=== PATIENT | female | born 1960 ===

== ENCOUNTER 2025-06-14 08:15 | Observation (INO) | payer MEDICARE, SELFPAY ==
[2025-06-14] VITALS (15 sets, daily range): BP systolic 100–153; BP diastolic 50–73; PULSE 62–76; RESP 12–22; TEMP 35.6–36.3; O2SAT 94–100; BMI 20.5
--- NOTE | 2025-06-14 | DI.CT.S_ITS ---
PROCEDURE: CT CHEST ABD PEL W CON INDICATIONS: FALL TECHNIQUE: After the administration of intravenous contrast, 5 mm thick sections acquired from the lung apices to the symphysis. 2.5 mm thick coronal and sagittal reformats were acquired. Additional 7 mm thick coronal maximum intensity projection (MIP) reformats acquired through the lungs. Optional 10-minute delayed imaging may be performed from the kidneys to the bladder. For radiation dose reduction, the following was used: automated exposure control, adjustment of mA and/or kV according to patient size. COMPARISON: None. FINDINGS: Image quality: Diagnostic. CHEST: Lower Neck: No enlarged lymph nodes. Thyroid: No thyroid nodules which require sonographic evaluation. Axillae: No enlarged lymph nodes. Chest Wall: No subcutaneous gas. Lungs and Pleura: No pulmonary contusions or lacerations. No acute airspace opacities. No pneumothorax or hemothorax. Mediastinum: No mediastinal hematomas. Heart size is normal. There is a low- density pericardial effusion measuring 1.3 cm in depth anteriorly. Thoracic aorta and pulmonary arteries demonstrate normal size and enhancement. No mediastinal or hilar adenopathy. Esophagus is normal in caliber. No hiatal hernia. ABDOMEN: Liver: No lacerations. Gallbladder: No radiopaque gallstones or wall thickening. Biliary ducts: No biliary dilation. Pancreas: Homogenous enhancement. Spleen: Homogenous enhancement without laceration or hematoma. Adrenal Glands: Symmetric enhancement. Kidneys and Ureters: Symmetric enhancement. No hydronephrosis. No solid mass. No complex renal cystic lesion which requires follow up. Stomach and Bowel: Normal colonic caliber, without significant wall thickening. Peritoneum: No abnormal intraperitoneal fluid. No free air. Ventral Wall: No hernia. Abdominal Nodes: No retroperitoneal or mesenteric adenopathy by size criteria. Vessels: Aorta and inferior vena cava are normal in size. PELVIS: Pelvic Organs: Unremarkable. Bladder: Normal thickness. Pelvic Nodes: No enlarged lymph nodes. Miscellaneous: No inguinal hernias are seen. Bones: Pelvic ring and hip joints appear intact. No displaced rib fractures. IMPRESSION: No evidence of traumatic injury to the chest, abdomen or pelvis. Simple pericardial effusion. Dictated by: Lia Armenta M.D. on 06/14/2025 at 9:10 Approved by: Lia Armenta M.D. on 06/14/2025 at 9:15
--- NOTE | 2025-06-14 08:16 | ED.GENADULT ---
HPI - General Adult General Chief complaint: Fall Stated complaint: Falls History of Present Illness HPI narrative: 64-year-old female brought in via EMS for being found on the floor by a neighbor after attempting to take 3 lorazepam pills to go to sleep with complaints of SI joint pain. Patient very drowsy at this time response to 1 word answers needs to be redirected multiple times for me. Patient denies headache, dizziness, chest pain, neck pain, back pain, abdominal pain, hematuria, bowel or bladder incontinence, shortness of breath, dyspnea on exertion, numbness, tingling down, the legs or arms. Other than what is stated 14 point review of system is negative. Related Data Home Medications ?Medication ?Instructions ?Recorded ?Confirmed baclofen 10 mg tablet 10 mg PO 3XD 06/14/25 06/14/25 clonazepam 0.5 mg tablet 0.5 mg PO Q8H PRN anxiety 06/14/25 06/14/25 dextroamphetamine-amphetamine 20 20 mg PO .qhs 06/14/25 06/14/25 mg tablet dextroamphetamine-amphetamine ER 1 cap PO QAM 06/14/25 06/14/25 30 mg 24hr capsule,extend release trazodone 100 mg tablet 100 mg PO ONCE PM PRN sleep 06/14/25 06/14/25 Previous Rx's ?Medication ?Instructions ?Recorded citalopram 20 mg tablet (Celexa) 20 mg PO DAILY #30 tabs 06/14/25 Allergies Allergy/AdvReac Type Severity Reaction Status Date / Time No Known Drug Allergies Allergy Verified 06/14/25 08:22 Review of Systems Review of Systems ROS Unobtainable: All systems reviewed & are unremarkable except as noted in HPI and below Patient History Medical History (Updated 06/14/25 @ 19:02 by Jorge Husain MD) Sacroiliac joint pain Anxiety Hypothyroidism Depression Chronic pain Surgical History (Updated 06/14/25 @ 19:03 by Jorge Husain MD) H/O total knee replacement Family History (Updated 06/14/25 @ 19:03 by Jorge Husain MD) Mother Secondary biliary cirrhosis Father Alcoholism Social History household members: none Smoking Status: Unknown if ever smoked alcohol intake: never Exam Narrative Exam Narrative: GENERAL: [64] year old patient appears stated age. Well-developed patient, in mild distress. HEAD: Atraumatic. Normocephalic. EYES: Pupils equal round and reactive. Extraocular motions intact. No scleral icterus. No injection or drainage. ENT: Nose without bleeding, purulent drainage. Throat without erythema, tonsillar hypertrophy or exudate. Airway patent. NECK: Trachea midline. Non tender CARDIOVASCULAR: Regular rate and rhythm without murmurs, gallops, or rubs. RESPIRATORY: Clear to auscultation. Breath sounds equal bilaterally. No wheezes, rales, or rhonchi. GASTROINTESTINAL: Abdomen soft, non-tender, nondistended. EXTREMITIES: No edema or joint tenderness. BACK: Nontender without deformity or crepitance. No flank tenderness. NEURO: AOx3. SKIN: No rash or erythema of visible areas Initial Vital Signs Initial Vital Signs: Vital Signs Pulse Rate 68 06/14/25 08:18 Respiratory Rate 18 06/14/25 08:18 Blood Pressure 105/55 L 06/14/25 08:18 Pulse Oximetry 100 06/14/25 08:18 Course Orders Ordered: ED Orders 06/14/25 12:19 Consult to Physical Therapy Evaluate & Treat 06/14/25 15:11 Consult to [employer] - Hospital Librarian Stat Cyclobenzaprine HCl (Cyclobenzaprine 10 Mg Tablet) 5 mg PO Q8HR PRN PRN Reason: Spasms Sodium Chloride (Normal Saline 0.9%) 1,000 mls @ 100 mls/hr IV CONT [facility] Ketorolac Tromethamine (Ketorolac 30 Mg/Ml Vial) 15 mg IV Q8H PRN PRN Reason: Pain, Severe (7-10) Stop: 06/19/25 20:05 Levothyroxine Sodium (Levothyroxine 137 Mcg Tablet) 137 mcg PO DAILY@0600 [facility] Naloxone HCl (Naloxone 0.4 Mg/Ml Vial) 0.2 mg IV Q2MIN PRN PRN Reason: Opiate Reversal Venlafaxine HCl (Venlafaxine Er 75 Mg Cap) 150 mg PO DAILY [facility] Discontinued Medications Aspirin (Aspirin 81 Mg Chew Tab) 324 mg PO NOW ONE Stop: 06/14/25 08:31 Last Admin: 06/14/25 08:39 Dose: Not Given Documented By: MLM Sodium Chloride (Normal Saline 0.9%) 1,000 mls @ 150 mls/hr IV CONT [facility] Last Admin: 06/14/25 08:40 Dose: Not Given Documented By: RASHIDA Lactated Ringer's (Lactated Ringers) 1,000 mls @ 1,000 mls/hr IV BOLUS ONE Stop: 06/14/25 09:32 Last Infusion: 06/14/25 09:39 Dose: Infused Documented By: Admin: 06/14/25 08:42 Dose: 1,000 mls/hr Documented By: RASHIDA Ketorolac Tromethamine (Ketorolac 30 Mg/Ml Vial) 15 mg IV NOW ONE Stop: 06/14/25 10:01 Last Admin: 06/14/25 10:04 Dose: 15 mg Documented By: RASHIDA Lidocaine (Lidocaine 5% Patch) 1 each TOP NOW ONE Stop: 06/14/25 20:19 Vital Signs Vital signs: Vital Signs - 8 hr 06/14/25 13:00 Pulse Rate 72 Respiratory Rate 16 Medical Decision Making Lab Data 06/14/25 08:26 06/14/25 08:26 Labs: Lab Results 06/14/25 06/14/25 Range/Units 08:26 11:02 WBC 3.8 L (4.5-11.0) X10^3/uL RBC 4.12 (4.0-5.2) X10^6/uL Hgb 12.3 (12.0-16.0) g/dL Hct 36.6 (36-46) % MCV 88.7 (80-100) fL MCH 29.8 (26-34) PG MCHC 33.6 (30-36) % RDW 15.6 H (11.6-14.8) % Plt Count 216 (150-400) X10^3/uL Neut % (Auto) 70.8 (50-75) % Lymph % (Auto) 18.0 L (25-40) % [place] % (Auto) 10.3 (3-14) % Eos % (Auto) 0.4 L (2-4) % Baso % (Auto) 0.5 (0-2) % Neut # (Auto) 2700 (6721-7883) /uL Lymph # (Auto) 700 L (6510-3290) /uL [place] # (Auto) 400 (0-900) /uL Eos # (Auto) 0 (0-450) /uL Baso # (Auto) 0 (0-100) /uL Sodium 136 L (137-145) mmol/L Potassium 4.4 (3.4-5.1) mmol/L Chloride 107 (98-107) mmol/L Carbon Dioxide 24 (22-32) mmol/L BUN 24 H (7-17) mg/dL Creatinine 0.58 (0.52-1.04) mg/dL Estimated GFR > 60 (>60) mL/min BUN/Creatinine Ratio 41.4 H (6-22) Glucose 102 H (70-99) mg/dL Calcium 8.9 (8.4-10.2) mg/dL Total Bilirubin 0.3 (0.2-1.3) mg/dL AST 38 H (14-36) IU/L ALT 26 (<35) IU/L Alkaline Phosphatase 82 (38-126) U/L Ammonia < 9 L (9-30) umol/L Total Creatine Kinase 73 (30-135) U/L Troponin I < 0.012 (0.01-0.034) ng/mL Total Protein 7.1 (6.3-8.2) g/dL Albumin 4.2 (3.5-5.0) g/dL Globulin 2.9 (1.7-4.1) g/dL Albumin/Globulin Ratio 1.4 (1.0-2.8) Lipase 113 (23-300) U/L Urine RBC 0-1/hpf (0-5/HPF) Urine WBC None seen (0-5/HPF) Ur Squamous Epith Cells None seen (0-5/HPF) Urine Bacteria None seen (None) Ur Culture Indicated? Cult not indicated Vol Urine Centrifuged 10ml (spun) Salicylates < 1.0 (<20) mg/dL U Opiates 300ng/mL cut Negative (Negative) Ur Oxycodone Screen Positive H (Negative) Urine Methadone Screen Negative (Negative) Acetaminophen < 10 (10-30) ug/mL Ur Barbiturates Screen Negative (Negative) U Tricyclic Antidepress Negative (Negative) Ur Phencyclidine Scrn Negative (Negative) Ur Amphetamines Screen Negative (Negative) U Methamphetamines Scrn Negative (Negative) Ur MDMA Scrn (Ecstasy) Negative (Negative) U Benzodiazepines Scrn Negative (Negative) Urine Cocaine Screen Negative (Negative) U Marijuana (THC) Screen Negative (Negative) Urine pH Normal (Normal) Urine Specific [place] Normal (Normal) Ethyl Alcohol < 10 (<10) mg/dL Ur Creatinine Normal (Normal) Imaging Data CT scan - head: Radiologist's Impression: [place] [address] CT Scan Report Signed Patient: Sheron Vilchis MR#: [id number] : 1960 Acct:[id number] Age/Sex: 64 / F Date of Service: 06/14/25 Loc: ED Accession Number: [id number] Procedure: CT head/brain wo con Ordering Provider: Irvin Romero D.O. PROCEDURE: CT HEAD/BRAIN WO CON INDICATIONS: trauma TECHNIQUE: Noncontrast 4.5 mm thick angled axial sections acquired from the foramen magnum to the vertex, with coronal and sagittal reformats. For radiation dose reduction, the following was used: automated exposure control, adjustment of mA and/or kV according to patient size. COMPARISON: None. FINDINGS: Image quality: Diagnostic. CSF spaces: Basal cisterns are patent. No extra-axial fluid collections. The ventricles are symmetric in size and shape. Brain: No intracranial bleeds or mass effect. There is cerebral volume loss, with resultant ventricular and sulcal prominence. There are periventricular and deep white matter chronic small vessel ischemic changes. There is intracranial internal carotid artery atherosclerosis. Skull and face: Calvarium and visualized facial bones appear intact, without suspicious lesions. Sinuses: Visualized sinuses and mastoids are clear. IMPRESSION: No acute intracranial pathology. CT - cervical spine: Radiologist's Impression: [place] [id number] CT Scan Report Signed Patient: Sheron Vilchis MR#: [id number] : 1960 Acct:[id number] Age/Sex: 64 / F Date of Service: 06/14/25 Loc: ED Accession Number: [id number] Procedure: CT cervical spine wo con Ordering Provider: Irvin Romero D.O. PROCEDURE: CT CERVICAL SPINE WO CON INDICATIONS: trauma TECHNIQUE: Noncontrast 3 mm thick sections acquired from the skull base to the T4 level. Sagittal and coronal reformats were then constructed. For radiation dose reduction, the following was used: automated exposure control, adjustment of mA and/or kV according to patient size. COMPARISON: None. FINDINGS: Image quality: Excellent. Bones: No fractures or dislocations. Osteopenia. Diffuse cervical spondylitic change. Findings include multilevel bilateral bony foraminal narrowing and a degree of canal stenosis C5-C6 and C6-C7. Visualized superior ribs are intact. Soft tissues: Prevertebral soft tissues are normal in thickness. No paravertebral hematomas. No apical pneumothoraces. IMPRESSION: No displaced fracture or traumatic subluxation. Cervical spondylosis. Osteopenia. CT scan - abdomen/pelvis: Radiologist's Impression: [address] [address] [address] Scan Report Signed Patient: Sheron Vilchis MR#: [id number] : 1960 Acct:[id number] Age/Sex: 64 / F Date of Service: 06/14/25 Loc: ED Accession Number: [id number] Procedure: CT chest abd pel w con Ordering Provider: Irvin Romero D.O. PROCEDURE: CT CHEST ABD PEL W CON INDICATIONS: FALL TECHNIQUE: After the administration of intravenous contrast, 5 mm thick sections acquired from the lung apices to the symphysis. 2.5 mm thick coronal and sagittal reformats were acquired. Additional 7 mm thick coronal maximum intensity projection (MIP) reformats acquired through the lungs. Optional 10-minute delayed imaging may be performed from the kidneys to the bladder. For radiation dose reduction, the following was used: automated exposure control, adjustment of mA and/or kV according to patient size. COMPARISON: None. FINDINGS: Image quality: Diagnostic. CHEST: Lower Neck: No enlarged lymph nodes. Thyroid: No thyroid nodules which require sonographic evaluation. Axillae: No enlarged lymph nodes. Chest Wall: No subcutaneous gas. Lungs and Pleura: No pulmonary contusions or lacerations. No acute airspace opacities. No pneumothorax or hemothorax. Mediastinum: No mediastinal hematomas. Heart size is normal. There is a low-density pericardial effusion measuring 1.3 cm in depth anteriorly. Thoracic aorta and pulmonary arteries demonstrate normal size and enhancement. No mediastinal or hilar adenopathy. Esophagus is normal in caliber. No hiatal hernia. ABDOMEN: Liver: No lacerations. Gallbladder: No radiopaque gallstones or wall thickening. Biliary ducts: No biliary dilation. Pancreas: Homogenous enhancement. Spleen: Homogenous enhancement without laceration or hematoma. Adrenal Glands: Symmetric enhancement. Kidneys and Ureters: Symmetric enhancement. No hydronephrosis. No solid mass. No complex renal cystic lesion which requires follow up. Stomach and Bowel: Normal colonic caliber, without significant wall thickening. Peritoneum: No abnormal intraperitoneal fluid. No free air. Ventral Wall: No hernia. Abdominal Nodes: No retroperitoneal or mesenteric adenopathy by size criteria. Vessels: Aorta and inferior vena cava are normal in size. PELVIS: Pelvic Organs: Unremarkable. Bladder: Normal thickness. Pelvic Nodes: No enlarged lymph nodes. Miscellaneous: No inguinal hernias are seen. Bones: Pelvic ring and hip joints appear intact. No displaced rib fractures. IMPRESSION: No evidence of traumatic injury to the chest, abdomen or pelvis. Simple pericardial effusion. ECG Data Interpretation: NSR HR 63 ME 154 QRS [address]-t wave change NO previous EKG to compare MDM Narrative Medical decision making narrative: All lab work, vital signs, nurse triage note, medication list, previous ER visits, and all imaging studies reviewed. CT chest abdomen and pelvis showed no acute process other than simple pericardial effusion measuring 1.3 cm in depth anteriorly. CT cervical spine showed cervical spondylosis no displaced fracture or traumatic subluxation. CT head showed no acute intracranial process. White count 3.8 sodium 136 BUN 24 creatinine 0.58 glucose 102 AST 38 ammonia less than 9 troponin all salicylate acetaminophen and alcohol level all normal. UDS positive for oxycodone. Friends came in here and mentioned that she just lost her 3 months ago suddenly his in the grieving process. Differential diagnosis hemorrhage, fracture, dislocation, contusion, pneumothorax, depression, anxiety, grieving. PT has assess the patient and unsteady at this time and unsafe to go home. Multiple attempts by RN to evaluate patient gait unsteady and unsafe to go home at this time. Case discussed with Dr. miller who has graciously accepted the patient for inpatient admission in light of unsteady gait. Discharge Plan Departure Patient Disposition: Admitted as Observation Clinical Impression: Anticipatory grieving, Unsteady gait Fall Qualifiers: Encounter type: initial encounter Qualified Code(s): W19.XXXA - Unspecified fall, initial encounter Contusion Qualifiers: Encounter type: initial encounter Contusion area: lower back Qualified Code(s): S30.0XXA - Contusion of lower back and pelvis, initial encounter Admit Date/Time: 06/14/25 18:39 Admit Provider: Jorge Husain
--- NOTE | 2025-06-14 08:24 | EKG_ITS ---
[address] [address] Test Date: 2025-06-14 Pat Name: Sheron Vilchis Department: Room: Gender: Female [employer] Clerk: EMANUEL : 1960 Requested By: Order Number: [id number] Reading MD: Geoff Husain Measurements Intervals [place] Rate: 63 P: 70 AR: 154 QRS: 59 QRSD: 86 T: 73 QT: 416 QTc: 425 Interpretive Statements Normal sinus rhythm Electronically Signed On 06-14-2025 18:41:30 PDT by Geoff Husain
--- NOTE | 2025-06-14 08:31 | DI.CT.S_ITS ---
PROCEDURE: CT HEAD/BRAIN WO CON INDICATIONS: trauma TECHNIQUE: Noncontrast 4.5 mm thick angled axial sections acquired from the foramen magnum to the vertex, with coronal and sagittal reformats. For radiation dose reduction, the following was used: automated exposure control, adjustment of mA and/or kV according to patient size. COMPARISON: None. FINDINGS: Image quality: Diagnostic. CSF spaces: Basal cisterns are patent. No extra-axial fluid collections. The ventricles are symmetric in size and shape. Brain: No intracranial bleeds or mass effect. There is cerebral volume loss, with resultant ventricular and sulcal prominence. There are periventricular and deep white matter chronic small vessel ischemic changes. There is intracranial internal carotid artery atherosclerosis. Skull and face: Calvarium and visualized facial bones appear intact, without suspicious lesions. Sinuses: Visualized sinuses and mastoids are clear. IMPRESSION: No acute intracranial pathology. Dictated by: Juan Carlos Melendez M.D. on 06/14/2025 at 9:41 Approved by: Juan Carlos Melendez M.D. on 06/14/2025 at 9:42
--- NOTE | 2025-06-14 08:31 | DI.CT.S_ITS ---
PROCEDURE: CT CERVICAL SPINE WO CON INDICATIONS: trauma TECHNIQUE: Noncontrast 3 mm thick sections acquired from the skull base to the T4 level. Sagittal and coronal reformats were then constructed. For radiation dose reduction, the following was used: automated exposure control, adjustment of mA and/or kV according to patient size. COMPARISON: None. FINDINGS: Image quality: Excellent. Bones: No fractures or dislocations. Osteopenia. Diffuse cervical spondylitic change. Findings include multilevel bilateral bony foraminal narrowing and a degree of canal stenosis C5-C6 and C6-C7. Visualized superior ribs are intact. Soft tissues: Prevertebral soft tissues are normal in thickness. No paravertebral hematomas. No apical pneumothoraces. IMPRESSION: No displaced fracture or traumatic subluxation. Cervical spondylosis. Osteopenia. Dictated by: Juan Carlos Melendez M.D. on 06/14/2025 at 9:42 Approved by: Juan Carlos Melendez M.D. on 06/14/2025 at 9:43
[2025-06-14 08:38] LABS: Add Manual Diff / Slide Review NO; Hematocrit 36.6 % (36-46); Hemoglobin 12.3 g/dL (12.0-16.0); Lymphocytes Absolute Auto 700 /uL (1100-4500); Mean Corpuscular HGB Conc 33.6 % (30-36); Mean Corpuscular Hemoglobin 29.8 PG (26-34); Mean Corpuscular Volume 88.7 fL (80-100); Platelet Count 216 X10^3/uL (150-400)
[2025-06-14] MEDS: LACTATED RINGERS 1,000 ML 1000 ML IV (08:42)
[2025-06-14 08:44] LABS: Alanine Aminotransferase 26 IU/L (<35); Albumin 4.2 g/dL (3.5-5.0); Albumin Globulin Ratio 1.4 (1.0-2.8); Alkaline Phosphatase 82 U/L (38-126); Blood Urea Nitrogen 24 mg/dL (7-17); Calcium 8.9 mg/dL (8.4-10.2); Carbon Dioxide 24 mmol/L (22-32); Chloride 107 mmol/L (98-107); Creatine Kinase 73 U/L (30-135); Estimated Glomerular Filt Rate > 60 mL/min (>60); Globulin 2.9 g/dL (1.7-4.1); Glucose 102 mg/dL (70-99); HEMOLYSIS 24 (0-50); Lipase 113 U/L (23-300); Potassium 4.4 mmol/L (3.4-5.1); Sodium 136 mmol/L (137-145); Total Protein 7.1 g/dL (6.3-8.2)
[2025-06-14 08:50] LABS: Acetaminophen < 10 ug/mL (10-30); Ethanol (ETOH) < 10 mg/dL (<10); Salicylate < 1.0 mg/dL (<20)
[2025-06-14 08:55] LABS: Troponin I < 0.012 ng/mL (0.01-0.034)
[2025-06-14 09:25] LABS: Ammonia (NH3) < 9 umol/L (9-30)
[2025-06-14] MEDS: KETOROLAC 30 MG/ML VIAL 15 MG IV ×2 (10:04→20:42)
[2025-06-14 11:41] LABS: UR Morphine/Opiate cutoff 300 Negative (Negative); Ur Specific Gravity Normal (Normal); Urine MDMA Negative (Negative); Urine Methamphetamines Negative (Negative); Urine Tetrahydrocannabinol Negative (Negative); Urine Tricyclic Antidepressant Negative (Negative)
[2025-06-14 11:43] LABS: Culture Indicated Urine Cult Not Indicated
--- NOTE | 2025-06-14 12:44 | PC.NURSE ---
1115-pt assisted up to toilet in bedside commode. Pt was 2 person assist, at one point pt required max assist back to bed because pt was leaning forward with out moving feet. Pt lifted back to bed. pt is very slurred with speech.
--- NOTE | 2025-06-14 14:35 | PT.IIE ---
Physical Therapy Inpatient Evaluation/Re-Eval M1 PT/OT-IP Prior Functional Status Start: 06/14/25 17:41 Freq: Status: Active Protocol: Document 06/14/25 14:35 AB (Rec: 06/14/25 17:53 AB Desktop) Medical Review Prior Functional Status Medical History Yes Reviewed Communication pt is drowsy; able to make needs known Mobility and Gait pt stated that she was modified independent with all mobilities and ambulation using a SPC for indoor and FWW for outdoor ambulation; pt stated that she has chronic SI joint pain affecting ambulation Social History Household Members none Living Arrangements House Number of Floors ( One Floor Floors) Number of Stairs To 2 steps B rails to enter Enter/Railing? Home Environment Standard Height Toilet,Walk in Shower Home Equipment Grab Bars Near Toilet,Grab Bars In Shower M2 PT-IP Current Condition Start: 06/14/25 17:41 Freq: Status: Active Protocol: Document 06/14/25 14:35 AB (Rec: 06/14/25 17:53 AB Desktop) Physical Therapy Current Condition Current Condition Evaluation Date 06/14/25 Treatment Diagnosis fall; difficulty in walking Onset Date 06/14/25 M3 PT-IP Subjective Start: 06/14/25 17:41 Freq: Status: Active Protocol: Document 06/14/25 14:35 AB (Rec: 06/14/25 17:53 AB Desktop) Subjective Physical Therapy Visit Type Type Initial Evaluation Visit Start Time 14:35 Visit Stop Time 15:05 Number of SQUAD BOSS Visits 0 Therapy Pain Assessment Pain When Pain Assessed At Rest Pain Present Pain Present Pain Reported Location SI joint Intensity 8 Scale Used Numeric (0 - 10) Pain Behaviors Facial Grimacing,Guarding,Holding Area Pain Management Apply Cold,Distraction,Modification of Treatment,Re- Techniques positioning,Timing of Activity with Medications M4 PT-IP Mobility and Gait Start: 06/14/25 17:41 Freq: Status: Active Protocol: Document 06/14/25 14:35 AB (Rec: 06/14/25 17:53 AB Desktop) PT-Bed Mobility Assessment Supine to Sit Supine to Sit Standby Assistance Sit to Supine Sit to Supine Standby Assistance PT-Transfer Assessment Sit to and From Stand Sit to and from Minimal Assistance,1 Person Assistance,Use of Upper Stand Extremities Equipment Transfer Assistive Gait Belt,Front Wheeled Walker Device Orthotic/Prosthetic No Devices or Brace: Comments Mobility Comments pt seen in the ED. pt in bed and seems drowsy. agreed to do PT. obtained PLOF and home set up. supine to sit SBA and cues for safety. sit to stand min A and ambulated in room using fWW min A and max cues. pt tends to push FWW too far forward and needed assist to maneuver FWW. pt has decrease safety awareness and has difficulty following directions. pt sat back on EOB and completed sit to supine SBA. positioned pt in bed. call light and table placed within reach. informed nurse. pt has decrease level of alertness affecting mobility and safety awareness. Gait Assessment Gait Gait Assistance Minimum Assistance Required: Distance (Feet) 15 Able to Maintain Yes Weight Bearing Status During Gait Assistive Devices Assistive Device Gait Belt,Front Wheeled Walker Orthotic/Prosthetic No Devices or Brace: Gait Deviations General Gait Pattern Ataxic,Decreased Stride Length,Decreased Feet Clearance Factors Limiting Gait Function Factors Limiting Decreased Activity Tolerance,Decreased Strength, Gait Function Difficulty Following Directions,Limited Range of Motion ,Pain,Poor Balance,Poor Safety Awareness PT-Balance Assessment Sitting Balance and Reactions Static Sitting Good Balance Ability Dynamic Sitting Good Balance Ability Standing Balance and Reactions Static Standing Fair Balance Ability Dynamic Standing Poor Balance Ability Device Used FWW M5 PT-IP Objective Assessments Start: 06/14/25 17:41 Freq: Status: Active Protocol: Document 06/14/25 14:35 AB (Rec: 06/14/25 17:53 AB Desktop) Orientation Orientation/Cognition Level of Alertness Lethargic Orientation Name,Place,Situation Safety Awareness Decreased Safety Awareness Memory Description Short Term Impaired Gross Range of Motion Lower Extremity ROM Assessment Within Functional Limits Strength Lower Extremity Strength Assessment Within Functional Limits Muscle Tone Muscle Tone WNL Yes M6 PT-IP Treatment Start: 06/14/25 17:41 Freq: Status: Active Protocol: Document 06/14/25 14:35 AB (Rec: 06/14/25 17:53 AB Desktop) Physical Therapy Treatment Education Education Provided Safety M7 PT-IP Assessment and Plan Start: 06/14/25 17:41 Freq: Status: Active Protocol: Document 06/14/25 14:35 AB (Rec: 06/14/25 17:53 AB Desktop) PT Summary Assessment and Plan Potential Rehabilitation Fair Potential Status of Condition Evolving at Evaluation Summary Impairments Pain,ROM,Strength,Balance,Coordination,Sensation,Tone, Cognition,Bed Mobility,Transfers,Gait,Activity Tolerance Assessment Summary pt is a 64 y/o F who presented to the ED after a fall. pt seen in the ED . pt requiring min A and max cues with ambulation using FWW. pt has decrease level of alertness affecting mobility level and safety awareness . pt will need assistance at home. informed nurse that pt's level of alertness affecting mobility and is not safe to go home at this time but nursing staff may want to do another trial of ambulation when pt is more alert. Goals Bed Mobility Goal Independent Transfer Goal Independent,Front Wheeled Walker Gait Goal Independent,Front Wheel Walker Gait Distance 50 Other Goals improve transfers, ambulation using SPC 100 ft mod I up/down 2 steps B rails SBA Days to Meet Goals 5 Frequency of Treatment Frequency Of Once a Day Treatment Treatment Plan Physical Therapy Bed Mobility Training,Transfer Training,Gait Training, Treatment Plan Therapeutic Exercise,Balance Retraining,Discharge Planning,Hot or Cold Pack,Neuromuscular Re-ed, Coordination Retraining Precautions Other Precautions falls Recommendations To Nursing Amount of Assist 1 Person Assist Needed Discharge Recommendations PT Discharge Home with 24/04 Assist Available,Home Health Recommendations Transportation Needs Private Vehicle,Wheelchair/Cabulance at Discharge - PT assist 1
--- NOTE | 2025-06-14 18:30 | PC.NURSE ---
Attempted an ambulation trial. Pt unable to ambulate independently. pt very unsteady on feet.
--- NOTE | 2025-06-14 18:35 | P.HP_ITS ---
History of Present Illness History of Present Illness Date Patient Seen: 06/14/25 Time Patient Seen: 18:35 Chief complaint: Falls Narrative: This is a 64-year-old female with a history of anxiety, depression, benzodiazepine use, hypothyroidism and chronic left SI joint pain who presents from home with repeated falls, weakness and gait ataxia. She has been in the ED for about 10 hours going through a workup and then hoping that her altered mental status would clear so she could go home. That does not seem to be happening. She remembers taking 3 of the 0.5 mg clonazepam tablets this morning and then falling when she was letting the dogs out of her house. She says she got up walked to the kitchen and fell again. Somehow she alerted her neighbor who had her brought in. She has remained very drowsy in the ED. Her urine drug screen is positive for oxycodone which she says she has not taken in over a week. Her 3 months ago. She is tearful when she describes that but is unable to describe the details. 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 The CT scan shows a 1.3 cm anterior pericardial effusion low-density. She has no history of pericardial effusion or any other heart problems. She does not appear to have any symptoms in her chest. The cervical CT and the brain CT are normal. [facility] Medical History (Updated 06/14/25 @ 19:02 by Jorge Husain MD) Sacroiliac joint pain Anxiety Hypothyroidism Depression Chronic pain Surgical History (Updated 06/14/25 @ 19:03 by Jorge Husain MD) H/O total knee replacement Family History (Updated 06/14/25 @ 19:03 by Jorge Husain MD) Mother Secondary biliary cirrhosis Father Alcoholism Social History household members: none Smoking Status: Unknown if ever smoked Meds Home Medications and Allergies Home Medications ?Medication ?Instructions ?Recorded ?Confirmed ?Type citalopram 20 mg tablet (Celexa) 20 mg PO DAILY #30 ta bs 06/14/25 Rx clonazepam 0.5 mg tablet PO 06/14/25 History diclofenac sodium 50 mg 50 mg PO TID PRN pain #30 ta bs 06/14/25 Rx tablet,delayed release Allergies Allergy/AdvReac Type Severity Reaction Status Date / Time No Known Drug Allergies Allergy Verified 06/14/25 08:22 Review of Systems Review of Systems Narrative: Positive for SI joint pain, falls, confusion, weakness. Negative for fevers, chills, sweats, chest pain, palpitations, nausea, vomiting, abdominal pain, coughing, headaches, sore throat, new allergies. Exam Vital Signs (past 8 hours): - 06/14/25 11:00 06/14/25 11:30 06/14/25 11:30 Pulse Rate 76 68 Respiratory Rate 15 19 Blood Pressure 138/63 06/14/25 12:00 06/14/25 12:30 06/14/25 13:00 Pulse Rate 67 62 72 Respiratory Rate 22 15 16 Blood Pressure Oxygen Delivery Method Room Air Narrative Exam Narrative: Alert and oriented x3. Sentences tend to trail off into mumbling. She is talking very slowly and processing slowly. No apparent distress. Pupils are equally round and reactive to light and accommodation. Extraocular muscles are intact. Sclerae are pink and nonicteric. No lymph nodes are felt head, neck, supraclavicular area. There is no thyromegaly. JVD is less than 6 cm. No carotid bruits are heard. Heart is regular rate and rhythm without muffling or murmurs. Lungs are clear to auscultation bilaterally. Abdomen is soft, bowel sounds positive, nontender, no organomegaly. Extremities have no ankle edema skin has no rash or jaundice. She has no tenderness over the SI joints. She has very little subcutaneous padding in that area. Cranial nerves 2-12 test intact. Motor function is 5/5 in all extremities. She is moving repeatedly in the bed in a somewhat dyskinetic fashion. There is no tremor. Reflexes are normal. Objective Labs 06/14/25 08:26 06/14/25 08:26 Labs: Laboratory Results - last 24 hr 06/14/25 06/14/25 08:26 11:02 WBC 3.8 L RBC 4.12 Hgb 12.3 Hct 36.6 MCV 88.7 MCH 29.8 MCHC 33.6 RDW 15.6 H Plt Count 216 Neut % (Auto) 70.8 Lymph % (Auto) 18.0 L [place] % (Auto) 10.3 Eos % (Auto) 0.4 L Baso % (Auto) 0.5 Neut # (Auto) 2700 Lymph # (Auto) 700 L [place] # (Auto) 400 Eos # (Auto) 0 Baso # (Auto) 0 Sodium 136 L Potassium 4.4 Chloride 107 Carbon Dioxide 24 BUN 24 H Creatinine 0.58 Estimated GFR > 60 BUN/Creatinine Ratio 41.4 H Glucose 102 H Calcium 8.9 Total Bilirubin 0.3 AST 38 H ALT 26 Alkaline Phosphatase 82 Ammonia < 9 L Total Creatine Kinase 73 Troponin I < 0.012 Total Protein 7.1 Albumin 4.2 Globulin 2.9 Albumin/Globulin Ratio 1.4 Lipase 113 Urine RBC 0-1/hpf Urine WBC None seen Ur Squamous Epith Cells None seen Urine Bacteria None seen Ur Culture Indicated? Cult not indicated Vol Urine Centrifuged 10ml (spun) Salicylates < 1.0 U Opiates 300ng/mL cut Negative Ur Oxycodone Screen Positive H Urine Methadone Screen Negative Acetaminophen < 10 Ur Barbiturates Screen Negative U Tricyclic Antidepress Negative Ur Phencyclidine Scrn Negative Ur Amphetamines Screen Negative U Methamphetamines Scrn Negative Ur MDMA Scrn (Ecstasy) Negative U Benzodiazepines Scrn Negative Urine Cocaine Screen Negative U Marijuana (THC) Screen Negative Urine pH Normal Urine Specific [place] Normal Ethyl Alcohol < 10 Ur Creatinine Normal Assessment & Plan Assessment & Plan narrative: This is a 64-year-old female with a history of anxiety, depression, benzodiazepine use, hypothyroidism and chronic left SI joint pain who presents from home with repeated falls, weakness and gait ataxia. Altered mental status with falling, present on admission. Active. -this appears to be most likely a direct result of benzodiazepine use and oxycodone. -patient admits to taking 1.5 mg of clonazepam that is provided by her behavioral health clinic. -patient denies the use of oxycodone which is present in her urine drug screen. -mentation is slowly improving. -IV fluid hydration. Avoid benzodiazepine use in the future. Asymptomatic pericardial effusion, present on admission. Active. -CT scan shows: There is a low-density pericardial effusion measuring 1.3 cm in depth anteriorly -echocardiogram ordered. -this was found incidentally without any apparent symptoms. -EKG is sinus rhythm without signs of pericarditis. Hypothyroidism, present on admission. Chronic. -continue levothyroxine. Anxiety/depression, present on admission. Active. -patient is tearful when discussing her losses -patient is not able to clearly explain her current altered mental status but seems to be improving. -continue venlafaxine. Stop benzodiazepine use due to falls and age-related contraindication. Chronic SI joint pain -image with x-rays. SCD for DVT prevention Backup decision maker is not defined. Time-Based Coding :: [TOTAL MINUTES] spent with patient and on the chart (including review of chart, obtaining history, exam, reviewing outside data, placing orders, documenting exam and treatment plan, and counseling patient) on [DATE].
--- NOTE | 2025-06-14 19:00 | DI.ECHO.S_ITS ---
[facility] : : [id number] : [place] : : [id number] : : Phone: [phone] Echocardiogram Report + + :Name: LAKSHMI HANSEN Study Date: 06/15/2025 Height: 64 in : :[facility] ReadingLocation: Weight: 120 lb : : Gender: Female BSA: 1.6 m2 : :: 1960 Age: 64 yrs BP: 113/69 mmHg: :Reason For Study: PERICARDIAL EFFUSION : :Ordering Physician: : :MARYBETH PADGETT Performed By: Reji Miles : :Referring: MARYBETH PADGETT : + + Interpretation Summary The ejection fraction is estimated to be 45-50% Grade I diastolic dysfunction with normal left atrial pressure. The right ventricle is normal in size and function. There is mild mitral regurgitation. There is mild to moderate aortic regurgitation. Pulmonary artery pressures cannot be estimated because of the lack of a measurable TR jet velocity. There is a trivial pericardial effusion noted. . Procedure: A two-dimensional transthoracic echocardiogram with color flow and Doppler was performed. The study quality was technically good. There is no prior echocardiogram noted for this patient. The patient was in normal sinus rhythm during the exam. Left Ventricle: The left ventricle is normal in size. There is normal left ventricular wall thickness. There is no ventricular septal defect visualized. The ejection fraction is estimated to be 45-50%. There is mild global hypokinesis of the left ventricle. Grade I diastolic dysfunction with normal left atrial pressure. Right Ventricle: The right ventricle is normal in size and function. Atria: The left atrial size is normal. Right atrial size is normal. There is no Doppler evidence for an interatrial shunt. Mitral Valve: The mitral valve leaflets appear normal. There is no evidence of stenosis, fluttering, or prolapse. There is mild mitral regurgitation. Aortic Valve: The aortic valve is trileaflet. The aortic valve opens well. The aortic valve is slightly calcified. There is no aortic valve stenosis. There is mild to moderate aortic regurgitation. Tricuspid Valve: The tricuspid valve is normal in structure and function. The tricuspid valve leaflets are thin and pliable. There is trace tricuspid regurgitation. Pulmonary artery pressures cannot be estimated because of the lack of a measurable TR jet velocity. Pulmonic Valve: The pulmonic valve leaflets are thin and pliable; valve motion is normal. There is no pulmonic valvular regurgitation. Great Vessels: The aortic root is borderline dilated. The dimensions of the ascending aorta are normal. The pulmonary artery is normal size. The IVC is normal in size. Pericardium/ Pleura There is a trivial pericardial effusion noted. There is no pleural effusion. MMode/2D Measurements & Calculations LVIDd: 4.9 cm LVOT diam: 2.0 cm LVIDs: 3.9 cm Ao root diam: 3.6 cm FS: 19.5 % asc Aorta Diam: 3.3 cm EPSS: 0.84 cm Ao Arch Diam (Prox Trans): 1.9 cm IVSd: 0.91 cm LVPWd: 0.88 cm LV meredith. diameter/BSA (cm/m^2): 3.1 LV sys. diameter/BSA (cm/m^2): 2.5 LA A2 area: 17.0 cm2 RA long axis: 4.6 cm LA A4 area: 11.9 cm2 RA area: 13.7 cm2 LA length (vol): 4.2 cm RA vol: 34.2 ml LA vol: 41.1 ml RA : 21.7 ml/m2 LA vol index: 26.1 ml/m2 IVC diam: 2.0 cm RVD1 (basal): 3.0 cm RVD2 (mid): 2.6 cm TAPSE: 1.6 cm Doppler Measurements & Calculations Ao V2 max: 99.2 cm/sec LVOT Max Justo: 72.6 cm/sec Ao V2 mean: 75.5 cm/sec LV V1 max P.1 mmHg Ao max P.9 mmHg LV V1 VTI: 17.6 cm Ao mean P.4 mmHg HENRI(I,D): 2.1 cm2 Ao V2 VTI: 24.7 cm HENRI(V,D): 2.2 cm2 sev ratio: 0.71 HENRI indexed to BSA (cm^2/m^2): 1.4 AI P1/2t: 495.7 msec AI dec slope: 257.9 cm/sec2 MV E max justo: 44.5 cm/sec PA V2 max: 51.9 cm/sec MV A max justo: 62.0 cm/sec PA V2 mean: 40.3 cm/sec MV E/A: 0.72 PA mean P.69 mmHg Med Peak E' Justo: 5.5 cm/sec PA pr(Accel): 27.6 mmHg E/E' med: 8.1 Lat Peak E' Justo: 7.5 cm/sec E/E' lat: 6.0 E/e' average: 7.0 MV dec time: 0.26 sec SV(LVOT): 53.1 ml Reading Physician:05:10 PM
--- NOTE | 2025-06-14 19:04 | DI.RAD.S_ITS ---
PROCEDURE: XR SACROILIAC JOINT MIN 3V INDICATIONS: Left SI Joint Pain TECHNIQUE: 3 views of the sacroiliac joints were acquired. COMPARISON: [facility], CT, CT CHEST ABD PEL W CON, 06/14/2025, 8:51. FINDINGS: Bones: No bony erosions or ankylosis. No suspicious bony lesions. No fractures. Mild degenerative changes. Soft tissues: Overlying bowel gas pattern is normal. No suspicious soft tissue densities. IMPRESSION: No radiographic evidence of sacroiliitis. Dictated by: Raphael Boone M.D. on 06/14/2025 at 20:09 Approved by: Raphael Boone M.D. on 06/14/2025 at 20:13
[2025-06-14] MEDS: CYCLOBENZAPRINE 10 MG TABLET 5 MG PO (20:43)
[2025-06-14] MEDS: LIDOCAINE 5% PATCH 1 EACH TOP (20:43)
[2025-06-14] MEDS: SODIUM CHLORIDE 0.9% 1,000 ML 100 ML IV (20:44)
[2025-06-15] VITALS: BP 123/65; PULSE 70; RESP 17; TEMP 36.1; O2SAT 100
[2025-06-15] MEDS: MELATONIN 3 MG TABLET PO (00:41)
[2025-06-15 04:00] VITALS: BP 127/66; PULSE 68; RESP 17; TEMP 36.4; O2SAT 97
[2025-06-15] MEDS: LEVOTHYROXINE 137 MCG TABLET PO (05:46)
[2025-06-15] MEDS: SODIUM CHLORIDE 0.9% 1,000 ML 100 ML IV (05:47)
--- NOTE | 2025-06-15 07:04 | P.DS_ITS ---
History of Present Illness History of Present Illness Chief complaint: Falls Narrative: This is a 64-year-old female with a history of anxiety, depression, benzodiazepine use, hypothyroidism and chronic left SI joint pain who presents from home with repeated falls, weakness and gait ataxia. She has been in the ED for about 10 hours going through a workup and then hoping that her altered mental status would clear so she could go home. That does not seem to be happening. She remembers taking 3 of the 0.5 mg clonazepam tablets this morning and then falling when she was letting the dogs out of her house. She says she got up walked to the kitchen and fell again. Somehow she alerted her neighbor who had her brought in. She has remained very drowsy in the ED. Her urine drug screen is positive for oxycodone which she says she has not taken in over a week. Her 3 months ago. She is tearful when she describes that but is unable to describe the details. 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 The CT scan shows a 1.3 cm anterior pericardial effusion low-density. She has no history of pericardial effusion or any other heart problems. She does not appear to have any symptoms in her chest. The cervical CT and the brain CT are normal. Discharge Providers Provider Date of admission: 06/14/25 18:39 Discharge Date: 06/15/25 Primary care physician: Dr. Nereyda Bro ([place]) Consults: 06/14/25 12:19 Consult to Physical Therapy Evaluate & Treat Comment: Physician Instructions: Evaluate and Treat 06/14/25 15:11 Consult to CARBIDE TOOL DIE MAKER - Rewinder Operator Helper Stat Comment: Rewinder Operator Helper Consult needed for:: Other reason (Comment) Comment: Low risk SI, situational depression. recent loss of spouse Discharge provider: Jorge Husain MD Summary Hospital Course Hospital Course: This is a 64-year-old female with a history of anxiety, depression, benzodiazepine use, hypothyroidism and chronic left SI joint pain who presents from home with repeated falls, weakness and gait ataxia. Altered mental status with falling -this appears to be most likely a direct result of benzodiazepine use and oxycodone. -patient admits to taking 1.5 mg of clonazepam that is provided by her behavioral health clinic. -patient denies the use of oxycodone which is present in her urine drug screen. -mentation and physical strength appears to have returned to her normal. Her sister says she is processing ?90%of her usual. -IV fluid was given overnight. She is eating and drinking normally now. Asymptomatic pericardial effusion -CT scan shows: There is a low-density pericardial effusion measuring 1.3 cm in depth anteriorly -echocardiogram shows only a trace amount of fluid. Grade 1 diastolic dysfunction on echocardiogram -moderate mitral regurgitation -ejection fraction 45-50% -very suspicious for takotsubo/broken heart syndrome secondary to grieving her 's and her other significant work and personal losses. -she will follow-up this issue with her PCP, Dr. Bro, with plans for Cardiology evaluation to rule out CAD, etc. -she has no cardiomyopathy or CHF symptoms and the fall is not felt to be related to this finding. Hypothyroidism -continue levothyroxine. Anxiety/depression -patient is tearful when discussing her losses -altered mental status returned to baseline with IV fluid, rest and withdrawal from the benzodiazepine effects. -continue venlafaxine. Stop benzodiazepine use due to falls and age-related contraindication. Chronic SI joint pain -sclerotic osteoarthritic appearing on x-rays. In summary she agrees to no longer use benzodiazepines after this episode. The issue of pericardial effusion was ruled out. The echocardiogram however suggests mild cardiomyopathy with her situational risks pointing at Takotsubo(?). She will need further evaluation to clarify that. This was discussed thoroughly with her and her sister. No indication for heart failure medication treatment today. Status at Discharge Cognitive/behavioral status at discharge: at baseline, oriented Functional status at discharge: independent ambulation Overall status at discharge: patient is progressing back to baseline Time Spent with Patient Time spent: Less than 30 minutes Exam Vital Signs (past 8 hours): - 06/15/25 00:00 06/15/25 04:00 Temperature 97.0 F L 97.5 F L Pulse Rate 70 68 Respiratory Rate 17 17 Blood Pressure 123/65 127/66 Pulse Oximetry 100 97 Oxygen Delivery Method Room Air Narrative Exam Narrative: Narrative Exam Narrative: Alert and oriented x3. She speaks at a normal pace without mumbling today. No apparent distress. Heart is regular rate and rhythm without muffling or murmurs. Lungs are clear to auscultation bilaterally. Extremities have no ankle edema. She is able to walk independently in her room. Objective Labs 06/14/25 08:26 06/14/25 08:26 Labs: Laboratory Results - last 24 hr 06/14/25 06/14/25 08:26 11:02 WBC 3.8 L RBC 4.12 Hgb 12.3 Hct 36.6 MCV 88.7 MCH 29.8 MCHC 33.6 RDW 15.6 H Plt Count 216 Neut % (Auto) 70.8 Lymph % (Auto) 18.0 L [place] % (Auto) 10.3 Eos % (Auto) 0.4 L Baso % (Auto) 0.5 Neut # (Auto) 2700 Lymph # (Auto) 700 L [place] # (Auto) 400 Eos # (Auto) 0 Baso # (Auto) 0 Sodium 136 L Potassium 4.4 Chloride 107 Carbon Dioxide 24 BUN 24 H Creatinine 0.58 Estimated GFR > 60 BUN/Creatinine Ratio 41.4 H Glucose 102 H Calcium 8.9 Total Bilirubin 0.3 AST 38 H ALT 26 Alkaline Phosphatase 82 Ammonia < 9 L Total Creatine Kinase 73 Troponin I < 0.012 Total Protein 7.1 Albumin 4.2 Globulin 2.9 Albumin/Globulin Ratio 1.4 Lipase 113 Urine RBC 0-1/hpf Urine WBC None seen Ur Squamous Epith Cells None seen Urine Bacteria None seen Ur Culture Indicated? Cult not indicated Vol Urine Centrifuged 10ml (spun) Salicylates < 1.0 U Opiates 300ng/mL cut Negative Ur Oxycodone Screen Positive H Urine Methadone Screen Negative Acetaminophen < 10 Ur Barbiturates Screen Negative U Tricyclic Antidepress Negative Ur Phencyclidine Scrn Negative Ur Amphetamines Screen Negative U Methamphetamines Scrn Negative Ur MDMA Scrn (Ecstasy) Negative U Benzodiazepines Scrn Negative Urine Cocaine Screen Negative U Marijuana (THC) Screen Negative Urine pH Normal Urine Specific [place] Normal Ethyl Alcohol < 10 Ur Creatinine Normal PFSH Medical History (Updated 06/14/25 @ 19:02 by Jorge Husain MD) Sacroiliac joint pain Anxiety Hypothyroidism Depression Chronic pain Surgical History (Updated 06/14/25 @ 19:03 by Jorge Husain MD) H/O total knee replacement Family History (Updated 06/14/25 @ 19:03 by Jorge Husain MD) Mother Secondary biliary cirrhosis Father Alcoholism Social History household members: none alcohol intake: never Discharge Plan Discharge Plan Patient Disposition: Home Provider Discharge Comment: Follow up with Dr. Bro next week. Discharge orders & Medications Prescriptions: New levothyroxine 137 mcg Tablet 137 mcg PO DAILY@0600 Qty: 30 0RF Continued baclofen 10 mg tablet 10 mg PO 3XD dextroamphetamine-amphetamine 20 mg tablet 20 mg PO .qhs dextroamphetamine-amphetamine 30 mg capsule,extended release 24hr 1 cap PO QAM trazodone 100 mg tablet 100 mg PO ONCE PM PRN (Reason: sleep) venlafaxine [Effexor XR] 150 mg capsule,extended release 24hr 150 mg PO DAILY Patient Comments: per patient report. Could not find outside pharmacy info for med. Discontinued clonazepam 0.5 mg tablet 0.5 mg PO Q8H PRN (Reason: anxiety) Diet/Activity/Treatments Diet: Diet as Tolerated Visit Report/Discharge Packet Stand Alone Forms: Patient Portal/API, Stroke Signs & Symptoms Discharge Data Attending Provider: Jorge Husain Admit Date/Time: 06/14/25 18:39
[2025-06-15 08:00] VITALS: BP 113/69; PULSE 72; RESP 12; TEMP 36.2; O2SAT 99
[2025-06-15] MEDS: VENLAFAXINE ER 75 MG CAP 150 MG PO (08:38)
[2025-06-15] MEDS: ACETAMINOPHEN 325 MG TABLET 650 MG PO ×2 (09:29→15:10)
[2025-06-15] MEDS: KETOROLAC 10 MG TABLET PO (09:29)
--- NOTE | 2025-06-15 11:31 | PT.IPTN ---
Physical Therapy Treatment Note M2 PT-IP Current Condition Start: 06/14/25 17:41 Freq: Status: Active Protocol: Document 06/14/25 14:35 AB (Rec: 06/14/25 17:53 AB Desktop) Physical Therapy Current Condition Current Condition Evaluation Date 06/14/25 Treatment Diagnosis fall; difficulty in walking Onset Date 06/14/25 M3 PT-IP Subjective Start: 06/14/25 17:41 Freq: Status: Active Protocol: Document 06/15/25 10:37 KJ (Rec: 06/15/25 11:19 KJ [id number]) Subjective Physical Therapy Visit Type Type Treatment Note Visit Start Time 10:36 Visit Stop Time 11:19 Physical Therapy Visit Comments Patient Comments knee is biggest problem. still swollen. Patient Goals I want my life back. To be able to walk long distances. No limp. To not have to lie on my right side with ice and heat. Therapy Pain Assessment Pain When Pain Assessed At Rest Location SI joint Description Aching,Stabbing Pain Behaviors Facial Grimacing,Holding Area,Restlessness Pain Management Apply Cold,Apply Heat Techniques M4 PT-IP Mobility and Gait Start: 06/14/25 17:41 Freq: Status: Active Protocol: Document 06/15/25 11:24 KJ (Rec: 06/15/25 11:30 KJ [id number]) PT-Bed Mobility Assessment Rolling Level of Assist Independent Supine to Sit Supine to Sit Independent Sit to Supine Sit to Supine Independent Scooting Scooting to Edge of Independent Bed PT-Transfer Assessment Sit to and From Stand Sit to and from Contact Guard Assistance Stand Equipment Transfer Assistive None Device Gait Assessment Gait Gait Assistance Contact Guard Assist,Minimum Assistance Required: Assistive Devices Assistive Device Gait Belt Gait Deviations General Gait Pattern Ataxic Factors Limiting Gait Function Factors Limiting Poor Balance Gait Function Comments Gait Comments Attempted ambulation in room without AD. Pt with poor balance, requiring min - mod assist to stay upright. Instructed pt on purposes and use of wheeled walker with twofold benefits: to maintain balance and to decrease strain on SI joint. Pt accepted use of fww. Ambulated 500' in hallways w/cga, some balance issues persist. Pt is not safe ambulating alone. PT-Balance Assessment Sitting Balance and Reactions Static Sitting Good Balance Ability Dynamic Sitting Good Balance Ability Standing Balance and Reactions Static Standing Poor Balance Ability Dynamic Standing Poor Balance Ability Device Used fww Functional Assessments Functional Tests 5 Times Sit to Stand unable to complete M5 PT-IP Objective Assessments Start: 06/14/25 17:41 Freq: Status: Active Protocol: Document 06/15/25 11:24 KJ (Rec: 06/15/25 11:30 KJ [id number]) Orientation Orientation/Cognition Level of Alertness Alert Orientation Name,Age,Birthday Language Function No Deficits Noted Ability M6 PT-IP Treatment Start: 06/14/25 17:41 Freq: Status: Active Protocol: Document 06/15/25 11:24 KJ (Rec: 06/15/25 11:30 KJ [id number]) Physical Therapy Treatment Exercises Exercises Ankle Pumps,Gluteal Sets,Quad Sets Education Education Provided Safety M7 PT-IP Assessment and Plan Start: 06/14/25 17:41 Freq: Status: Active Protocol: Document 06/15/25 11:24 KJ (Rec: 06/15/25 11:30 KJ [id number]) PT Summary Assessment and Plan Potential Rehabilitation Good Potential Status of Condition Evolving at Evaluation Summary Impairments Pain,Balance,Transfers,Gait Progress Towards Progressing Toward Goals Goals Assessment Summary More alert today. Treatment Plan Physical Therapy Gait Training,Balance Retraining Treatment Plan Other stairs, balance ex Recommendations and Next Treatment Focus Discharge Recommendations PT Discharge Home with 24/04 Assist Available Recommendations Equipment Needed for fww Home Before Discharge Transportation Needs Private Vehicle at Discharge
--- NOTE | 2025-06-15 15:47 | CM.DANOTE ---
DCP Assessment note pt is a 64yo F (recent ) from [facility] here after two GLFs at home and a period of AMS. history of anxiety, depression, benzodiazepine use, hypothyroidism and chronic left SI joint pain. tox screen pos for oxy, pt declines recent use. per provider, echo pending. other labs pending. per PT, rec home with walker. per chart, pt very emotional with staff about recent loss of spouse. 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 EAR NOSE THROAT SURGEON entered room and introduced self and role. pt accompanied by sister in room. pt reports having a walker at home. pt reports seeing OP MH counselor and psychitrist Dr. Bangura for grief support/anxiety/depression. pt and sister deny any DCP needs from this pt. per sister concerns about pt discharging too early- referred pt to provider for more details regarding test results p: anticipate home when medically stable with sister to transport. CM team will continue to follow in case any new DCP needs should arise MANDEEP Abdalla Discharge Planning/Care Management CM Discharge Assessment Start: 06/14/25 19:40 Freq: Status: Active Protocol: Document 06/15/25 15:46 SL (Rec: 06/15/25 15:47 SL [id number]) Discharge Planning Assessment Assigned Discharge MANDEEP [employer] Contractor Buyer Provider Dr. Nereyda Bro w/ [employer] Medicare Advance Directives? No History Provided By Patient Prior Living House Arrangements Household Members none Type of Drives own vehicle transporation used prior to admit Independent with ADL Yes 's Is patient alert and Yes oriented? DME Already Rented / FWW / Walker Owned Discharge Plan Home Referrals Initiated None needed Review Status In Process Please Provide Date 06/15/25 Initial DC Assessment Was Performed Next Review Type Continued Stay Review ED Psychiatric Symptoms Assessment Start: 06/14/25 15:03 Freq: Q2H Status: Discharge Protocol: Document 06/14/25 14:25 MLM (Rec: 06/14/25 15:10 MLM [id number]) Psychiatric Symptoms Assessment Associated None Psychiatric Symptoms Associated Symptoms Denies Other Symptoms Level of Drowsy Consciousness Patient Behavior/ Distractible,Labile,Restless Mood Ability to Follow Fair Directions Hallucination Type None Thought Process: Normal
--- NOTE | 2025-06-15 18:28 | PC.NURSE ---
Pt is dressed and ready for discharge home with Sister Daniela. IV has already been removed. Went over d/c instructions with Pt and Family-discussed d/c meds, time of last dose, reviewed stroke education, encouraged Pt to drink plenty of fluids to prevent constipation or dehydration. Reminded Pt to get up slowly from bed or chair to prevent falls and to be careful with following her doctors instructions regarding medications. Reminded Pt that she is to stop taking her clonazepam and to follow up with her PCP next week. Pt and Sister denied further questions and Pt was taken out via w/c by RN to pov with Sister Daniela and all belongings.
== END 2025-06-15 18:33 | disposition home or self-care (01) ==
LOC: ED 18:37 → AC 18:40
PROVIDERS: Admitting Provider Family Medicine; Emergency Provider Family Medicine; Referring Provider Family Medicine; Visit Provider Family Medicine
DX: R53.1 Weakness (principal); R41.82 Altered mental status, unspecified; E03.9 Hypothyroidism, unspecified; M53.3 Sacrococcygeal disorders, not elsewhere classified; W18.39XA Other fall on same level, initial encounter; Y92.009 Unspecified place in unspecified non-institutional (private) residence as the place of occurrence of the external cause; Z91.81 History of falling; F41.9 Anxiety disorder, unspecified; F32.A Depression, unspecified; I34.0 Nonrheumatic mitral (valve) insufficiency; I31.39 Other pericardial effusion (noninflammatory); F19.90 Other psychoactive substance use, unspecified, uncomplicated; F43.21 Adjustment disorder with depressed mood
CPT/HCPCS: 36415; 70450; 71260; 72125; 72202; 74177; 80053; 80305; 80320; 80329; 81015; 82140; 82550; 83690; 84484; 85025; 93005; 93306; 96361; 96374; 96376; 97116; 97162; 97530; 99285; G0378; G0480; J1885; Q9967

== ENCOUNTER → 2025-07-23 16:03 | Outpatient (CLI) | payer MEDICARE, SELFPAY ==
[2025-06-14 19:51] VITALS: BMI 20.5
--- NOTE | 2025-07-23 16:06 | DI.ECHO.S_ITS ---
[facility] : : [address] : [place] : : [id number] : : Phone: [phone] Echocardiogram Report + + :Name: LAKSHMI HANSEN Study Date: 07/23/2025 Height: 64 in : :[facility] ReadingLocation: Weight: 120 lb : : Gender: Female BSA: 1.6 m2 : :: 1960 Age: 64 yrs BP: 117/82 mmHg: :Reason For Study: HEART FAILURE : :Ordering Physician: NALINI, : :DAVONTE Performed By: Reji Miles : :Referring: DAVONTE JAIME : + + Interpretation Summary Left ventricular ejection fraction is estimated to be 45%%. There has been no significant change since the previous exam. There is mild global hypokinesis of the left ventricle. There is moderate aortic regurgitation. Procedure: A two-dimensional transthoracic echocardiogram with color flow and Doppler was performed in limited views only to assess EF and wall motion. The study quality was technically good. Comparison is made with the echocardiogram of 06/15/2025. The patient was in normal sinus rhythm during the exam. Left Ventricle: The left ventricle is normal in size. There is normal left ventricular wall thickness. There is no ventricular septal defect visualized. Left ventricular ejection fraction is estimated to be 45%%. There has been no significant change since the previous exam. There is mild global hypokinesis of the left ventricle. Mitral Valve: There is moderate mitral regurgitation. Aortic Valve: The aortic valve is trileaflet. The aortic valve opens well. There is moderate aortic regurgitation. Tricuspid Valve: The tricuspid valve leaflets are thin and pliable. There is trace tricuspid regurgitation. Pulmonic Valve: There is no pulmonic valvular regurgitation. Great Vessels: The IVC is of normal diameter and collapses greater than 50% with a sniff. This suggests a low right atrial pressure of 3 mm Hg. Pericardium/ Pleura There is no pericardial effusion. There is no pleural effusion. MMode/2D Measurements & Calculations LVIDd: 4.7 cm IVC diam: 1.9 cm LVIDs: 3.7 cm FS: 21.7 % IVSd: 0.74 cm LVPWd: 0.79 cm LV meredith. diameter/BSA (cm/m^2): 3.0 LV sys. diameter/BSA (cm/m^2): 2.3 Doppler Measurements & Calculations AI P1/2t: 376.3 msec AI dec slope: 341.3 cm/sec2 Reading Physician:05:07 PM
== END ==
LOC: ECHO 16:06
PROVIDERS: PCP Nurse Practitioner Family; Referring Provider Internal Medicine Cardiovascular Disease; Visit Provider Internal Medicine Cardiovascular Disease
DX: I08.0 Rheumatic disorders of both mitral and aortic valves (principal); I50.22 Chronic systolic (congestive) heart failure
CPT/HCPCS: 93307